=== PATIENT | male | born 1940 ===

== ENCOUNTER 2017-05-13 08:13 | Emergency (ER) | payer OTHER ==
[2017-05-13 08:13] VITALS: BMI 25.4
[2017-05-13 08:19] VITALS: O2SAT 97
--- NOTE | 2017-05-13 09:08 | C.PDOC ---
History Of Present Illness 77 y/o male sent to ED by PMD, Dr. Karissa Correa, for evaluation of low back pain, and right hip pain radiating down to right leg for the last 10 days. Pt states that he unable to sleep at night due to the pain. No fever, extremity weakness, or numbness. Time Seen by Provider: 05/13/17 08:21 Chief Complaint (Nursing): Hip Pain History Per: Patient History/Exam Limitations: no limitations Onset/Duration Of Symptoms: Days Current Symptoms Are (Timing): Still Present Recent travel outside of the [place]: No Additional History Per: Patient Past Medical History Reviewed: Historical Data, Nursing Documentation, Vital Signs Vital Signs: Last Vital Signs Temp 97.5 F L 05/13/17 12:11 Pulse 65 05/13/17 12:11 Resp 18 05/13/17 12:11 BP 127/77 05/13/17 12:11 Pulse Ox 97 05/13/17 12:44 - Medical History PMH: Asthma, COPD, Peripheral Edema Denies: Chronic Kidney Disease Surgical History: Endoscopy - [facility] Procedures CATARAC PHACOEMULS/ASPIR (02/27/15) CLOSED ENDOSCOPIC BIOPSY OF LARGE INTESTINE (05/09/13) ENDO EXCISION/DEST OF LESION OR TISSUE OF STOMACH (04/02/15) INSERT LENS AT CATAR EXT (02/27/15) Family History: States: Unknown Family Hx - Social History Hx Alcohol Use: No Hx Substance Use: No - Immunization History Hx Tetanus Toxoid Vaccination: No Hx Influenza Vaccination: No Hx Pneumococcal Vaccination: No Review Of Systems Except As Marked, All Systems Reviewed And Found Negative. Constitutional: Negative for: Fever, Chills Cardiovascular: Negative for: Chest Pain Respiratory: Negative for: Shortness of Breath Gastrointestinal: Negative for: Nausea, Vomiting, Abdominal Pain Genitourinary: Negative for: Incontinence Musculoskeletal: Positive for: Back Pain, Leg Pain (right hip and leg pain) Skin: Negative for: Rash, Bruising Neurological: Negative for: Weakness, Numbness Physical Exam - Physical Exam Appears: Non-toxic, No Acute Distress Skin: Normal Color, Warm, Dry Head: Atraumatic, Normacephalic Eye(s): bilateral: Normal Inspection Neck: Supple Cardiovascular: Rhythm Regular, No Murmur Respiratory: Normal Breath Sounds, No Rales, No Rhonchi, No Wheezing Gastrointestinal/Abdominal: Soft, No Tenderness Back: No Vertebral Tenderness, Paraspinal Tenderness (paralumbar) Extremity: Normal ROM, No Tenderness, No Pedal Edema, No Deformity Neurological/Psych: Oriented x3, Normal Speech Gait: Steady ED Course And Treatment O2 Sat by Pulse Oximetry: 97 (RA) Pulse Ox Interpretation: Normal Progress Note: Lumbar spine CT, hip x-ray ordered and reviewed. Patient was given Tramadol. On re-evaluation ambulating with steady gait. Discharge in stable condition Reassessment Condition: Improved - Physician Consult Information Physician Contacted: Gissell Correa Outcome Of Conversation: discharge Disposition Discussed With : Gissell Correa Doctor Will See Patient In The: Office Counseled Patient/Family Regarding: Studies Performed, Diagnosis, Need For Followup, Rx Given - Disposition Referrals: Gissell Correa MD [Staff Provider] - Disposition: HOME/ ROUTINE Disposition Time: 13:00 Condition: STABLE Additional Instructions: Return to ED if any increase symptoms Prescriptions: traMADol [Ultram] 50 mg PO TID PRN #10 tab PRN Reason: Pain, Mild (1-3) Instructions: Back Pain (ED) Forms: [employer] ([place]) - POA Present On Arrival: None - Clinical Impression Clinical Impression: Back pain - PA / [employer] / Resident Statement MD/DO has reviewed & agrees with the documentation as recorded. - Scribe Statement The provider has reviewed the documentation as recorded by the Scribe Kristal Correa All medical record entries made by the Scribe were at my direction and personally dictated by me. I have reviewed the chart and agree that the record accurately reflects my personal performance of the history, physical exam, medical decision making, and the department course for this patient. I have also personally directed, reviewed, and agree with the discharge instructions and disposition.
--- NOTE | 2017-05-13 10:50 | RAD ---
PROCEDURE: Right Hip with Pelvis Radiographs. HISTORY: Right hip pain COMPARISON: None. FINDINGS: BONES: Diffuse osteopenia suggests osteoporosis. No displaced fracture is appreciate the right hip joint with the pelvic ring and there is no destructive bony lesion appreciated throughout. JOINTS: Degenerative cortical sclerosis and joint space narrowing seen in the bilateral hip joints with degenerative changes also identified at the bilateral sacroiliac joints as well. No right hip dislocation. SOFT TISSUES: Normal. OTHER FINDINGS: None. IMPRESSION: No acute fracture dislocation is seen in the right hip joint or the throughout the pelvic ring. Diffuse osteopenia suggests osteoporosis. Degenerative changes seen the bilateral hip and sacroiliac joints.
--- NOTE | 2017-05-13 11:21 | CT ---
PROCEDURE: CT Lumbar Spine without contrast HISTORY: pain COMPARISON: None. TECHNIQUE: Axial computed tomography images were obtained of the lumbar spine without the use of intravenous contrast. Coronal and sagittal reformatted images were created and reviewed. Radiation dose: Total exam DLP = 463.70 mGy-cm. This CT exam was performed using one or more of the following dose reduction techniques: Automated exposure control, adjustment of the mA and/or kV according to patient size, and/or use of iterative reconstruction technique. FINDINGS: VERTEBRAE: There is a borderline spondylolisthesis L5 anterior to S1. This may be on the basis of facet arthropathy as there is no spondylolysis identified. The lordotic curvature is otherwise normal. No destructive blastic or lytic lesion appreciable and there is moderate severe multilevel spondylosis identified at the visualized thoracolumbar spine. Advanced facet joint arthropathy is appreciate diffusely but worst at the mid to inferior levels. Prevertebral and paraspinal soft tissues appear diffusely unremarkable. DISCS/SPINAL CANAL/NEURAL FORAMINA: L1-2: A mild disc osteophyte complex is appreciate without resulting in central canal stenosis. There is borderline bilateral neural foraminal stenosis appreciated however. L2-3: A disc osteophyte complex is appreciated resulting in mild central stenosis concentrated at the lateral recesses with borderline bilateral neural foraminal stenosis identified. L3-4: A mild central stenosis results from a disc osteophyte complex and facet arthropathy with mild bilateral neural foraminal stenosis identified. L4-5: A moderate central stenosis results from a disc osteophyte complex and facet arthropathy with mild to moderate bilateral neural foraminal stenoses present. L5-S1: A large generalized disc bulge is identified combining with prominent facet joint degenerative changes resulting in a mild central stenosis and moderate bilateral neural foraminal stenoses. No prominent disc herniation appreciable. MRI is more sensitive in evaluation of intervertebral discs. PARASPINAL SOFT TISSUES: OTHER FINDINGS: None. IMPRESSION: Advanced degenerative disc disease and facet arthropathy are identified resulting in spinal stenosis primarily at L3-4 through L5-S1 but seen worst at L4-5 where moderate central canal stenosis is appreciated. No definitive disc herniation appreciated throughout the exam however MRI may be utilized for further characterization of intervertebral discs if clinically warranted. Borderline L5-S1 spondylolisthesis.
[2017-05-13 12:12] VITALS: BP 127/77; PULSE 65; RESP 18; TEMP 97.5
== END 2017-05-13 13:04 | disposition home or self-care (01) ==
LOC: C.ER 08:13
DX: M54.5 Low back pain (principal)